=== PATIENT | male | born 1950 | race Caucasian/White ===

== ENCOUNTER → 2018-02-20 | Outpatient (CLI) | payer MEDICARE, OTHER ==
[~2018-02-20] MED LIST: ADULT LOW DOSE81 MG PO; AMLODIPINE BESYL5 MG PO; AVELOX 400 MG400 MG PO; CIPROFLOXACIN500 M3 PO; DUONEB 2.5-0.5 M3 ML IH; IBUPROFEN 200200 M1 PO; IRON325 PO; MUCINEX DM TABL1 TA1 PO; MUCINEX600 MG PO; NICOTINE TRANSD21 M1 TD; NORCO 5-325 TA1 EACH PO; NORVASC 5 MG TAB5 MG; PREDNISONE 10 M10 MG PO; PRILOSEC 20 MG20 MG PO; PROVENTIL17 G1 IH; SYMBICORT160 MCG/4. INH
== END ==
LOC: M.CT 12:17
DX: K57.30 Diverticulosis of large intestine without perforation or abscess without bleeding (principal); K44.9 Diaphragmatic hernia without obstruction or gangrene; N21.0 Calculus in bladder; N28.1 Cyst of kidney, acquired; J44.9 Chronic obstructive pulmonary disease, unspecified

== ENCOUNTER 2021-12-05 12:02 | Inpatient (IN) | payer OTHER ==
[~2021-12-05] VITALS: Ht 182.9 cm; Wt 112.0 kg
[~2021-12-05 12:02] MED LIST changes: -PRILOSEC 20 MG20 MG PO; +PRILOSEC OTC20 MG PO; -PROVENTIL17 G1 IH; +VENTOLIN HFA 1818 GM INH
[2021-12-05 12:10] VITALS: BP 181/126
[2021-12-05] MEDS ORDERED: HYDROXYZINE HCL25 M2 PO (12:20)
[2021-12-05] MEDS ORDERED: LORATIDINE 10 M10 M1 PO (12:20)
[2021-12-05] MEDS ORDERED: COZAAR100 MG PO (12:20)
[2021-12-05] MEDS ORDERED: DALIRESP500 MCG PO (12:20)
[2021-12-05] MEDS ORDERED: FUROSEMIDE 40 M40 MG PO (12:21)
[2021-12-05] MEDS ORDERED: WIXELA 250-501 EACH INH (12:21)
[2021-12-05] MEDS ORDERED: SINGULAIR 10 MG10 MG PO (12:21)
[2021-12-05] MEDS ORDERED: SPIRIVA INH (12:21)
[2021-12-05] MEDS ORDERED: PROSCAR 5MG TABL5 M1 PO (12:21)
[2021-12-05] MEDS ORDERED: VERAPAMIL ER240 M1 PO (12:21)
[2021-12-05] MEDS ORDERED: MELOXICAM15 MG PO (12:22)
[2021-12-05 12:55] LABS: ABSOLUTE BASOPHILS 0.1 thou/uL (0.0-0.2); ABSOLUTE EOSINOPHILS 0.3 thou/uL (0.0-0.7); ABSOLUTE LYMPHOCYTES 1.1 thou/uL (0.8-5.3); ABSOLUTE NEUTROPHILS 7.7 thou/uL (1.6-8.1); EOSINOPHILS 2.8 %; HEMATOCRIT 40.2 % (42.0-52.0); LYMPHOCYTES 10.4 %; MCHC 32.3 g/dL (28.0-37.0); MCV 77.6 fL (80.0-100.0); MONOCYTES 9.9 %; MPV 6.7 fl. (7.2-11.1); NUCLEATED RBCS 0 /100WBC; PLATELET COUNT* 380 thou/uL (150-400); POLYS 75.9 %; RBC 5.18 mil/uL (4.50-6.00); RDW-CV 16.5 % (10.5-14.5); WBC 10.2 thou/uL (4.0-11.0)
[2021-12-05 13:02] LABS: POTASSIUM 3.3 mmol/L (3.5-5.1)
[2021-12-05 13:12] LABS: ALBUMIN 3.6 g/dL (3.4-5.0); MAGNESIUM 1.8 mg/dL (1.8-2.4); TOTAL BILIRUBIN 0.4 mg/dL (<0.1-1.0)
--- NOTE | 2021-12-05 15:52 | EKG ---
[place] [address] ELECTROCARDIOGRAM REPORT Name: JOYA LINCOLN Room: [place] [address] ADM IN [facility]#: [id number] Admission: 12/05/21 Attend Phys: Napoleon Barron Discharge: Date of : 50 Date of Service: 12/05/21 1300 Report #: [id number] THIS REPORT FOR: //name// [facility] ED Test Date: 2021-12-05 Test Time: 13:00:08 Pat Name: JOYA LINCOLN Department: Room: [facility] Gender: M Attorney Lawyer: GUILLERMO : 1950 Requested By: Rajesh Tesfaye Order Number: [id number] MD: Israel Orozco Measurements Intervals [place] Rate: 81 P: 30 [place]: 151 QRS: 8 QRSD: 98 T: 43 QT: 358 QTc: 416 Interpretive Statements Sinus rhythm Compared to ECG 06/05/2010 08:45:12 No significant changes Electronically Signed On 12-05-2021 15:52:37 [employer] INTERN by Israel Orozco [email or web address] <ELECTRONICALLY SIGNED> By: Israel Orozco MD, [facility] 12/05/21 1552 1300 1300 Israel Orozco MD, [facility] /EPI
[2021-12-05 17:01] VITALS: BP 147/86
[2021-12-05 20:32] VITALS: BP 140/72
[2021-12-05 21:04] VITALS: BP 170/92
[2021-12-06 00:55] VITALS: BP 141/84
[2021-12-06 02:00] LABS: MAGNESIUM 1.8 mg/dL (1.8-2.4)
[2021-12-06 02:03] LABS: POTASSIUM 4.5 mmol/L (3.5-5.1)
[2021-12-06 04:00] VITALS: BP 153/95
[2021-12-06 08:00] VITALS: BP 164/101
[2021-12-06 14:51] VITALS: BP 135/86
[2021-12-06 16:00] VITALS: BP 154/90
[2021-12-06 20:44] VITALS: BP 169/97
[2021-12-07] VITALS (7 sets, daily range): BP systolic 162–184; BP diastolic 89–109
[2021-12-07 06:16] LABS: HEMATOCRIT 39.1 % (42.0-52.0); HEMOGLOBIN 12.4 gm/dL (14.0-18.0); MCHC 31.8 g/dL (28.0-37.0); MCV 78.6 fL (80.0-100.0); NUCLEATED RBCS 0 /100WBC; PLATELET COUNT* 431 thou/uL (150-400); RBC 4.97 mil/uL (4.50-6.00); WBC 15.3 thou/uL (4.0-11.0)
[2021-12-07 06:24] LABS: APTT 24.6 Seconds (25.0-31.3); INR 1.1; PROTIME 11.4 Seconds (9.20-11.50)
[2021-12-07 06:25] LABS: ALBUMIN 3.6 g/dL (3.4-5.0); CALCIUM 9.4 mg/dL (8.5-10.1); CREATININE 1.1 mg/dL (0.6-1.3); MAGNESIUM 2.1 mg/dL (1.8-2.4); PHOSPHORUS* 3.5 mg/dL (2.5-4.9); POTASSIUM 4.6 mmol/L (3.5-5.1); TOTAL BILIRUBIN 0.3 mg/dL (<0.1-1.0); TOTAL PROTEIN 6.9 g/dL (6.4-8.2)
[2021-12-07 08:28] LABS: ABSOLUTE LYMPHOCYTES 0.8 thou/uL (0.8-5.3); ABSOLUTE MONOCYTES 0.5 thou/uL (0.0-1.2); ABSOLUTE NEUTROPHILS 14.1 thou/uL (1.6-8.1)
[2021-12-07 08:29] LABS: PLATELET ESTIMATE INCREASED
[2021-12-08] VITALS (7 sets, daily range): BP systolic 154–187; BP diastolic 93–107
[2021-12-08] MEDS ORDERED: CEFDINIR300 MG PO (10:56)
[2021-12-08] MEDS ORDERED: PREDNISONE 10 M10 MG PO (10:56)
[2021-12-08] MEDS ORDERED: HYDROCODONE-CH115 ML PO (10:56)
== END 2021-12-08 17:06 | disposition home health service (06) | DRG 189 ==
LOC: M.ERS 12:02 → M.2W 13:01 → M.TBA-ER 13:01 → M.2W 20:39
PROVIDERS: Family Medicine; Internal Medicine; ADMIT Internal Medicine; ATTEND Internal Medicine
PROC: 5A09357 Assistance with Respiratory Ventilation, Less than 24 Consecutive Hours, Continuous Positive Airway Pressure (ICD-10-PCS; principal; 2021-12-07)
DX: J96.01 Acute respiratory failure with hypoxia (principal); R65.11 Systemic inflammatory response syndrome (SIRS) of non-infectious origin with acute organ dysfunction; J44.1 Chronic obstructive pulmonary disease with (acute) exacerbation; Z88.0 Allergy status to penicillin; Z88.2 Allergy status to sulfonamides; I10 Essential (primary) hypertension; E87.6 Hypokalemia; F17.210 Nicotine dependence, cigarettes, uncomplicated; E66.9 Obesity, unspecified; Z68.33 Body mass index [BMI] 33.0-33.9, adult; Z71.6 Tobacco abuse counseling; K21.9 Gastro-esophageal reflux disease without esophagitis; Z20.822 Contact with and (suspected) exposure to COVID-19; J40 Bronchitis, not specified as acute or chronic